=== PATIENT | male | born 1970 | race Caucasian/White ===

== ENCOUNTER 2019-02-13 22:51 | Inpatient (IN) | payer OTHER ==
--- NOTE | 2019-02-13 23:09 | C.PDOC ---
History Of Present Illness Patient presents with 3 days of abdominal pain, nausea and vomiting, worsening over the last 24 hours. Not tolerating po. Had about 7-10 episodes of emesis. Feels very weak. No cp/palpitations. HAs been complaining of being very thirsty Time Seen by Provider: 02/13/19 23:09 Chief Complaint (Nursing): GI Problem History Per: Patient, Family History/Exam Limitations: no limitations Onset/Duration Of Symptoms: Days (3) Current Symptoms Are (Timing): Still Present Severity: Severe Pain Scale Rating Of: 7 Reports Recently: Treated By A Physician Recent travel outside of the [place] States: No Additional History Per: Family Past Medical History Reviewed: Historical Data, Nursing Documentation, Vital Signs Vital Signs: Last Vital Signs Temp 97.5 F L 02/13/19 22:56 Pulse 90 02/13/19 22:56 Resp 16 02/13/19 22:56 BP 143/83 02/13/19 22:56 Pulse Ox 98 02/13/19 22:56 Family History: States: No Known Family Hx - Social History Hx Alcohol Use: Yes Hx Substance Use: No - Immunization History Hx Tetanus Toxoid Vaccination: No Hx Influenza Vaccination: No Hx Pneumococcal Vaccination: No Review Of Systems Constitutional: Negative for: Fever, Chills ENT: Negative for: Throat Pain Cardiovascular: Negative for: Chest Pain Respiratory: Negative for: Shortness of Breath Gastrointestinal: Positive for: Nausea, Vomiting, Abdominal Pain Genitourinary: Negative for: Dysuria Musculoskeletal: Positive for: Back Pain Skin: Negative for: Rash Neurological: Negative for: Weakness Psych: Negative for: Anxiety Physical Exam - Physical Exam Appears: Non-toxic Skin: Warm, Dry Oral Mucosa: Dry Neck: Supple Chest: Symmetrical Cardiovascular: Rhythm Regular Respiratory: No Rales, No Rhonchi, No Wheezing Gastrointestinal/Abdominal: Soft, Tenderness (mild), No Distention, No Guarding, No Rebound Back: No CVA Tenderness Extremity: Normal ROM Extremity: Bilateral: Atraumatic Neurological/Psych: Oriented x3 Gait: With Assistance ED Course And Treatment - Laboratory Results Result Diagrams: 02/13/19 23:59 02/13/19 23:59 ECG: Interpreted By Me, Viewed By Me ECG Rhythm: Sinus Rhythm (91), Nonspecific Changes O2 Sat by Pulse Oximetry: 98 Pulse Ox Interpretation: Normal - Radiology CXR: Interpreted by Me, Viewed By Me CXR Interpretation: No: Infiltrates, Fracture, Pnemothorax Progress Note: spoke with dr lee-icu- will come and see the pt in the ed Critical Care Time - Critical Care Note Total Time (in mins): 30 Documented critical care: time excludes all time spent performing seperately billable procedures. Disposition Discussed With : Nataly Wynne Comment: accepted the pt on his service and took over the care at 1:21 AM Doctor Will See Patient In The: ED Counseled Patient/Family Regarding: Studies Performed, Diagnosis - Disposition Disposition: HOSPITALIZED Disposition Time: 23:09 Condition: GUARDED Forms: [employer] ([employer]) - POA Present On Arrival: Poor Glycemic Control - Clinical Impression Clinical Impression: DKA (diabetic ketoacidoses), Diabetes mellitus, new onset Decision To Admit - Pt Status Changed To: Hospital Disposition Of: Inpatient - Admit Certification Admit to Inpatient:: After my assessment, the patient will require ho spitalization for at least two midnights. This is because of the severity of symptoms shown, intensity of services needed, and/or the medical risk in this patient being treated as an outpatient. - InPatient: Physician Admission Certification: I certify that this patient requires 2 or more midnights of care for the following reason:: After my assessment, the patient will require hospitalization for at least two midnights. This is because of the severity of symptoms shown, intensity of services needed, and/or the medical risk in this patient being treated as an outpatient. - . Bed Request Type: ICU Admitting Physician: Kylah Acosta Patient Diagnosis: DKA (diabetic ketoacidoses), Diabetes mellitus, new onset
[2019-02-13] MEDS ORDERED: Sodium Chloride 0.9% 1,000 ML IV ONE (23:53)
[2019-02-14 00:05] LABS: BASO # 0.1 K/uL (0.0-0.2); BASO % 0.4 % (0.0-2.0); EOS % 0.1 % (0.0-4.0); HEMOGLOBIN 17.3 g/dL (12.0-18.0); LYMPH # 1.7 K/uL (1.0-4.3); MEAN CELL VOLUME 94.1 fL (80.0-94.0); MEAN CORPUSCULAR HEMOGLOBIN 30.4 pg (27.0-31.0); MEAN CORPUSCULAR HGB CONC 32.2 g/dL (33.0-37.0); MEAN PLATELET VOLUME 10.6 fL (7.2-11.7); MONO # 0.6 K/uL (0.0-0.8); MONO % 3.9 % (0.0-10.0); NEUT % 83.6 % (50.0-75.0); NRBC % 0.1 % (0.0-2.0); RBC 5.71 Mil/uL (4.40-5.90); RED CELL DISTRIBUTION WIDTH 19.4 % (11.5-14.5); WHITE BLOOD COUNT 14.4 K/uL (4.8-10.8)
[2019-02-14 00:28] LABS: ALB/GLOB RATIO 1.7 (1.0-2.1); ALBUMIN 5.6 g/dL (3.5-5.0); ALT/SGPT 13 U/L (21-72); AST/SGOT 16 U/L (17-59); BLOOD UREA NITROGEN 12 mg/dL (9-20); CALCIUM 9.4 mg/dl (8.6-10.4); GFR NON-AFRICAN AMERICAN > 60; LIPASE 256 U/L (23-300)
[2019-02-14] MEDS ORDERED: Sodium Chloride 0.9% 2,000 ML IV ONE (00:30)
[2019-02-14 00:51] LABS: VENOUS BLOOD GAS BASE EXCESS -27.9 mmol/L (0.0-2.0); VENOUS BLOOD GAS PCO2 15 mmHg (40-60); VENOUS BLOOD GAS PO2 47 mm/Hg (30-55); VENOUS BLOOD PH 6.93 (7.32-7.43)
[2019-02-14 00:52] LABS: INR 0.9; PROTHROMBIN TIME 10.3 SECONDS (9.7-12.2)
[2019-02-14 01:02] LABS: GRANULAR CAST 7 /lpf (0-1); SQUAMOUS EPITHIAL < 1 /hpf (0-5); URINE BILIRUBIN NEGATIVE (NEGATIVE); URINE BLOOD 1+ (NEGATIVE); URINE CLARITY Clear (Clear); URINE COLOR Yellow (YELLOW); URINE GLUCOSE (UA) 3+ mg/dL (Normal); URINE LEUKOCYTE ESTERASE NEG Leu/uL (Negative); URINE PROTEIN 2+ mg/dL (NEGATIVE); URINE UROBILINOGEN NORMAL mg/dL (0.2-1.0)
--- NOTE | 2019-02-14 01:11 | CP.PCM.CON ---
History of Present Illness - History of Present Illness History of Present Illness: Attending: Michelle Acosta MD PMD: None Reason for Consult: Critical care management Chief Complaint: Vomiting/ Generalized weakness The patient was isra nd examined in the ED with the family present HPI: The Hx was obtained from the patient, and after review of the laboratory, radiological and medical records. This is a 49 years old male with No significant past medical hx who comes with 3 days of Polydypsia, polyuria, g eneralized weakness, being unable to walk, with nausea and non bloody profuse vomiting for 2 days. The abdominal pain is associated with the vomiting. He refers headache, Chills, SOB on minimal exertion, bilateral leg cramps and carpopedal spasm of the toes. No diarrhea, dysuria nor fever. In the ED his blood glucose was 452mg/dl with pH of 6.93 and Anion gap of 35 PMH: Denies PSH: Denies SH: No illegal drug use; Heavy smoker of cigrettes; Uses Alcohol socially; Works as a [employer] truck driver; Lives with the Family FH: States: No Diabetes in the family Allergies: NKDA Medications: Denies use of medication Review of Systems - Constitutional Constitutional: Anorexia, Chills, Headache, Malaise. absent: Fever - EENT Eyes: Requires Corrective Lenses. absent: Blurred Vision, Diplopia, Sees Flashes Ears: absent: Decreased Hearing, Ear Discharge, Tinnitus Nose/Mouth/Throat: absent: Epistaxis, Nasal Congestion, Nasal Discharge, Sinus Pain, Sinus Pressure, Sore Throat - Cardiovascular Cardiovascular: Lightheadedness. absent: Chest Pain, Dyspnea, Edema, Palpitations, Pedal Edema - Respiratory Respiratory: Dyspnea. absent: Cough, Wheezing, Stridor - Gastrointestinal Gastrointestinal: Abdominal Pain, Nausea, Vomiting. absent: Constipation, Diarrhea - Genitourinary Genitourinary: absent: Dysuria, Flank Pain, Hematuria - Musculoskeletal Musculoskeletal: Muscle Cramps. absent: Arthralgias, Back Pain, Numbness - Integumentary Integumentary: absent: Pruritus, Rash, Skin Ulcer, Sores, Striae, Swelling - Neurological Neurological: Headaches, Weakness. absent: Confusion, Focal Weakness - Psychiatric Psychiatric: absent: Anxiety, Depression, Panic Attacks - Endocrine Endocrine: Polydipsia, Polyuria. absent: Palpitations, Polyphagia - Hematologic/Lymphatic Hematologic: absent: Easy Bleeding, Easy Bruising Past Patient History - Past Medical History & Family History Past Medical History?: No - Past Social History Smoking Status: Heavy Smoker > 10 Cigarettes Daily Chewing Tobacco Use: No Cigar Use: No Alcohol: Social Drugs: Denies, Inhalants Home Situation {Lives}: With Family - CARDIAC Hx Cardiac Disorders: No - PULMONARY Hx Respiratory Disorders: No - NEUROLOGICAL Hx Neurological Disorder: No - HEENT Hx HEENT Problems: No - RENAL Hx Chronic Kidney Disease: No - ENDOCRINE/METABOLIC Hx Endocrine Disorders: No - HEMATOLOGICAL/ONCOLOGICAL Hx Blood Disorders: No - INTEGUMENTARY Hx Dermatological Problems: No - MUSCULOSKELETAL/RHEUMATOLOGICAL Hx Musculoskeletal Disorders: No - GASTROINTESTINAL Hx Gastrointestinal Disorders: No - GENITOURINARY/GYNECOLOGICAL Hx Genitourinary Disorders: No - PSYCHIATRIC Hx Psychophysiologic Disorder: No Hx Substance Use: No - SURGICAL HISTORY Hx Surgeries: No - ANESTHESIA Hx Anesthesia: No Meds Allergies/Adverse Reactions: Allergies Allergy/AdvReac Type Severity Reaction Status Date / Time No Known Allergies Allergy Verified 02/13/19 23:02 - Medications Medications: Current Medications Sodium Chloride (Sodium Chloride 0.9%) 2,000 mls @ 1,000 mls/hr IV .Q2H ONE Stop: 02/14/19 02:29 Physical Exam - Constitutional Appears: In Acute Distress - Head Exam Head Exam: ATRAUMATIC, NORMAL INSPECTION, NORMOCEPHALIC - Eye Exam Eye Exam: EOMI, Normal appearance Pupil Exam: NORMAL ACCOMODATION, PERRL - ENT Exam ENT Exam: Mucous Membranes Moist, Normal Exam - Neck Exam Neck exam: Positive for: Full Rom. Negative for: Lymphadenopathy, Tenderness, Thyromegaly - Respiratory Exam Respiratory Exam: Clear to Auscultation Bilateral. absent: Rales, Rhonchi, Wheezes - Cardiovascular Exam Cardiovascular Exam: Gallop, REGULAR RHYTHM, RRR, Rubs, +S1, +S2 - GI/Abdominal Exam GI & Abdominal Exam: Normal Bowel Sounds, Soft. absent: Mass, Organomegaly, Tenderness - Rectal Exam Rectal Exam: absent: Deferred - Extremities Exam Extremities exam: Positive for: full ROM, normal inspection. Negative for: calf tenderness, joint swelling, pedal edema - Back Exam Back exam: NORMAL INSPECTION. absent: CVA tenderness (L), CVA tenderness (R) - Neurological Exam Neurological exam: Alert, CN II-XII Intact, Oriented x3, Reflexes Normal - Psychiatric Exam Psychiatric exam: Normal Affect, Normal Mood - Skin Skin Exam: Dry, Intact, Warm Results - Vital Signs Recent Vital Signs: Last Vital Signs Temp 97.5 F L 02/13/19 22:56 Pulse 90 02/13/19 22:56 Resp 16 02/13/19 22:56 BP 143/83 02/13/19 22:56 Pulse Ox 98 02/14/19 00:22 - Labs Result Diagrams: 02/13/19 23:59 02/14/19 02:23 Labs: Laboratory Results - last 24 hr 02/13/19 02/13/19 02/14/19 23:59 23:59 00:40 WBC 14.4 H RBC 5.71 Hgb 17.3 Hct 53.8 H MCV 94.1 H MCH 30.4 MCHC 32.2 L RDW 19.4 H Plt Count 295 MPV 10.6 Neut % (Auto) 83.6 H Lymph % (Auto) 12.0 L Boundary % (Auto) 3.9 Eos % (Auto) 0.1 Baso % (Auto) 0.4 Neut # (Auto) 12.0 H Lymph # (Auto) 1.7 Boundary # (Auto) 0.6 Eos # (Auto) 0.0 Baso # (Auto) 0.1 PT 10.3 INR 0.9 APTT 37.0 H pO2 VBG pH VBG pCO2 VBG HCO3 VBG Total CO2 VBG O2 Sat (Calc) VBG Base Excess VBG Potassium Glucose Lactate Crit Value Called To Crit Value Called By Crit Value Read Back Blood Gas Notified Time Sodium 133 Potassium 5.1 Chloride 98 Carbon Dioxide 5 L* Anion Gap 35 H BUN 12 Creatinine 1.0 Est GFR ( Amer) > 60 Est GFR (Non-Af Amer) > 60 Random Glucose 452 H* Calcium 9.4 Total Bilirubin 0.7 AST 16 L ALT 13 L Alkaline Phosphatase 134 H Total Protein 8.8 H Albumin 5.6 H Globulin 3.3 Albumin/Globulin Ratio 1.7 Lipase 256 Venous Blood Potassium 02/14/19 00:45 WBC RBC Hgb Hct MCV MCH MCHC RDW Plt Count MPV Neut % (Auto) Lymph % (Auto) Boundary % (Auto) Eos % (Auto) Baso % (Auto) Neut # (Auto) Lymph # (Auto) Boundary # (Auto) Eos # (Auto) Baso # (Auto) PT INR APTT pO2 47 VBG pH 6.93 L* VBG pCO2 15 L* VBG HCO3 1.9 VBG Total CO2 3.6 L VBG O2 Sat (Calc) 80.3 H VBG Base Excess -27.9 L VBG Potassium 1.9 L* Glucose 222 H Lactate 1.4 Crit Value Called To Desiree rn Crit Value Called By Luigi digital forensics investigator Crit Value Read Back Y Blood Gas Notified Time 51 Sodium 143.0 Potassium Chloride 117.0 H Carbon Dioxide Anion Gap BUN Creatinine Est GFR ( Amer) Est GFR (Non-Af Amer) Random Glucose Calcium Total Bilirubin AST ALT Alkaline Phosphatase Total Protein Albumin Globulin Albumin/Globulin Ratio Lipase Venous Blood Potassium 1.9 L* - Imaging and Cardiology Chest x-ray Status: Image reviewed by me Additional comment: Clear no infiltrate. Assessment & Plan - Assessment and Plan (Free Text) Plan: 49 years old male with No significant past medical hx who comes with 3 days of Polydypsia, polyuria, generalized weakness, being unable to walk, with nausea and non bloody profuse vomiting for 2 days. In the ED his blood glucose was 452mg/dl with pH of 6.93 and Anion gap of 35 #. DKA - Admit to ICU - IV Fluids 3 liters given in ED. Continue with Normal Saline 500mls/hr for 4hrs then reassess - Insulin IV drip according to DKA protocol - Accucheck Q1H - Electrolyes and renal labs Q 4H #. New unset Diabetes Mellitus - Consult Endocrine Dr Cam - Diabetic Counselling - HbA1c #. Leukocytosis most likely reactive - Blood Culture - Follow WBC #. Alcohol Abuse and Suspect Pending Alcohol withdrawal - Ativan PRN for Withdrawal symptoms - Thimine IM change to PO with Folic acid as soon as pte starts oral diet -CIWA protocol #. Stress Ulcer Prophylaxis with Pepcid #. DVT Prophylaxis with SCD and Lovenox #. Code Status: Full - Date & Time Date: 02/14/19 Time: 01:11
[2019-02-14] MEDS ORDERED: (Novolin R) Insulin Human Regular 100 units/ml vial IVP ONE (01:45)
[2019-02-14] MEDS ORDERED: Insulin Human Regular 100 UNIT in Sodium Chloride 0.9% 99 ML IV SCH ×2 (02:00→11:30)
[2019-02-14 03:05] LABS: BLOOD UREA NITROGEN 11 mg/dL (9-20); CALCIUM 7.9 mg/dl (8.6-10.4); GFR NON-AFRICAN AMERICAN > 60
[2019-02-14] MEDS ORDERED: Sodium Bicarbonate (8.4%) 50 Meq Syringe IVP ONE (03:15)
[2019-02-14] MEDS ORDERED: Sodium Bicarbonate (8.4%) 50 mEq Vial IVP ONE (03:30)
[2019-02-14] MEDS ORDERED: Potassium Chl 20 mEq in NS 1,000 ML IV ONE (03:30)
[2019-02-14] MEDS: Potassium Chl 20 mEq in NS 1,000 ML IV SCH ×2 (03:38→06:15)
[2019-02-14 05:42] LABS: VENOUS BLOOD GAS BASE EXCESS -20.1 mmol/L (0.0-2.0); VENOUS BLOOD GAS PCO2 26 mmHg (40-60); VENOUS BLOOD GAS PO2 18 mm/Hg (30-55)
[2019-02-14 06:01] LABS: BARBITURATES, UR NEGATIVE (NEGATIVE); BENZODIAZEPINES, UR NEGATIVE (NEGATIVE); OPIATES, UR NEGATIVE (NEGATIVE); PHENCYCLIDINE, UR NEGATIVE (NEGATIVE)
[2019-02-14 06:11] LABS: BASO # 0.1 K/uL (0.0-0.2); BASO % 0.5 % (0.0-2.0); LYMPH # 1.9 K/uL (1.0-4.3); LYMPH % 12.7 % (20.0-40.0); MEAN CELL VOLUME 93.1 fL (80.0-94.0); MEAN CORPUSCULAR HEMOGLOBIN 30.7 pg (27.0-31.0); MEAN CORPUSCULAR HGB CONC 32.9 g/dL (33.0-37.0); MEAN PLATELET VOLUME 9.9 fL (7.2-11.7); MONO # 0.7 K/uL (0.0-0.8); MONO % 4.4 % (0.0-10.0); NEUT # 12.3 K/uL (1.8-7.0); NEUT % 82.4 % (50.0-75.0); RBC 4.59 Mil/uL (4.40-5.90); RED CELL DISTRIBUTION WIDTH 18.9 % (11.5-14.5)
[2019-02-14] MEDS ORDERED: Dextrose 5%/0.45% NS 1,000 ML IV ONE (06:15)
[2019-02-14 06:19] LABS: HEMOGLOBIN 14.1 g/dL (12.0-18.0)
[2019-02-14 06:30] LABS: BLOOD UREA NITROGEN 10 mg/dL (9-20); CALCIUM 7.7 mg/dl (8.6-10.4); GFR NON-AFRICAN AMERICAN > 60
[2019-02-14] MEDS ORDERED: Potassium Phosphate 15 MMOLE in Sodium Chloride 0.9% 250 ML IVPB ONE (07:00)
[2019-02-14] MEDS: Enoxaparin 40 mg Syringe SC SCH (09:35)
[2019-02-14] MEDS: Thiamine 100 mg/ml Inj IM SCH (09:35)
--- NOTE | 2019-02-14 10:12 | RAD ---
Date of service: 02/14/2019 PROCEDURE: CHEST RADIOGRAPH, 1 VIEW HISTORY: abd pain COMPARISON: None available. FINDINGS: LUNGS: The lungs are well inflated and clear. There is biapical pleural thickening. PLEURA: No pneumothorax or pleural effusion. CARDIOVASCULAR: The heart is normal in size. No aortic atherosclerotic calcifications present. OSSEOUS STRUCTURES: Within normal limits for the patient's age. VISUALIZED UPPER ABDOMEN: Normal. OTHER FINDINGS: None. IMPRESSION: No active pulmonary disease.
[2019-02-14 10:34] LABS: AMYLASE 71 U/L (30-110); BLOOD UREA NITROGEN 8 mg/dL (9-20); CALCIUM 7.5 mg/dl (8.6-10.4); GFR NON-AFRICAN AMERICAN > 60; LIPASE 232 U/L (23-300)
[2019-02-14 14:33] LABS: BLOOD UREA NITROGEN 7 mg/dL (9-20); CALCIUM 7.8 mg/dl (8.6-10.4); GFR NON-AFRICAN AMERICAN > 60
[2019-02-14] MEDS: Sodium Chloride 0.45% 1,000 ML IV SCH (16:00)
[2019-02-14] MEDS: (Novolog) Insulin Aspart, Recombinant 100 u/ml 10 ml vial SC SCH ×3 (17:15→22:00)
[2019-02-14] MEDS ORDERED: (Lantus) Insulin Glargine, Recombinant SC SCH (22:00)
--- NOTE | 2019-02-14 23:34 | CP.PCM.HP ---
Past Patient History - Past Medical History & Family History Past Medical History?: No - Past Social History Smoking Status: Heavy Smoker > 10 Cigarettes Daily Chewing Tobacco Use: No Cigar Use: No Alcohol: Social Drugs: Denies, Inhalants Home Situation {Lives}: With Family - CARDIAC Hx Cardiac Disorders: No - PULMONARY Hx Respiratory Disorders: No - NEUROLOGICAL Hx Neurological Disorder: No - HEENT Hx HEENT Problems: No - RENAL Hx Chronic Kidney Disease: No - ENDOCRINE/METABOLIC Hx Endocrine Disorders: No - HEMATOLOGICAL/ONCOLOGICAL Hx Blood Disorders: No - INTEGUMENTARY Hx Dermatological Problems: No - MUSCULOSKELETAL/RHEUMATOLOGICAL Hx Musculoskeletal Disorders: No - GASTROINTESTINAL Hx Gastrointestinal Disorders: No - GENITOURINARY/GYNECOLOGICAL Hx Genitourinary Disorders: No - PSYCHIATRIC Hx Psychophysiologic Disorder: No Hx Substance Use: No - SURGICAL HISTORY Hx Surgeries: No - ANESTHESIA Hx Anesthesia: No Meds Allergies/Adverse Reactions: Allergies Allergy/AdvReac Type Severity Reaction Status Date / Time No Known Allergies Allergy Verified 02/13/19 23:02 Physical Exam - Constitutional Appears: Well - Head Exam Head Exam: ATRAUMATIC, NORMAL INSPECTION, NORMOCEPHALIC - Eye Exam Eye Exam: EOMI, Normal appearance, PERRL Pupil Exam: NORMAL ACCOMODATION, PERRL - ENT Exam ENT Exam: Mucous Membranes Moist, Normal Exam - Neck Exam Neck exam: Positive for: Normal Inspection - Respiratory Exam Respiratory Exam: Decreased Breath Sounds - Cardiovascular Exam Cardiovascular Exam: REGULAR RHYTHM, +S1, +S2 - GI/Abdominal Exam GI & Abdominal Exam: Diminished Bowel Sounds, Soft - Rectal Exam Rectal Exam: Deferred - Neurological Exam Neurological exam: Oriented x3 Results - Vital Signs Recent Vital Signs: Last Vital Signs Temp 98.4 F 02/14/19 20:00 Pulse 71 02/14/19 22:30 Resp 15 02/14/19 22:30 BP 112/66 02/14/19 22:55 Pulse Ox 100 02/14/19 22:30 - Labs Result Diagrams: 02/15/19 06:18 02/15/19 06:18 Labs: Laboratory Results - last 24 hr 02/13/19 02/13/19 02/14/19 23:59 23:59 00:40 WBC 14.4 H RBC 5.71 Hgb 17.3 Hct 53.8 H MCV 94.1 H MCH 30.4 MCHC 32.2 L RDW 19.4 H Plt Count 295 MPV 10.6 Neut % (Auto) 83.6 H Lymph % (Auto) 12.0 L Hall % (Auto) 3.9 Eos % (Auto) 0.1 Baso % (Auto) 0.4 Neut # (Auto) 12.0 H Lymph # (Auto) 1.7 Hall # (Auto) 0.6 Eos # (Auto) 0.0 Baso # (Auto) 0.1 PT 10.3 INR 0.9 APTT 37.0 H pO2 VBG pH VBG pCO2 VBG HCO3 VBG Total CO2 VBG O2 Sat (Calc) VBG Base Excess VBG Potassium Glucose Lactate Crit Value Called To Crit Value Called By Crit Value Read Back Blood Gas Notified Time Sodium 133 Potassium 5.1 Chloride 98 Carbon Dioxide 5 L* Anion Gap 35 H BUN 12 Creatinine 1.0 Est GFR ( Amer) > 60 Est GFR (Non-Af Amer) > 60 POC Glucose (mg/dL) Random Glucose 452 H* Hemoglobin A1c Calcium 9.4 Phosphorus Magnesium Total Bilirubin 0.7 AST 16 L ALT 13 L Alkaline Phosphatase 134 H Total Protein 8.8 H Albumin 5.6 H Globulin 3.3 Albumin/Globulin Ratio 1.7 Amylase Lipase 256 Venous Blood Potassium Urine Color Urine Clarity Urine pH Ur Specific Randolph Urine Protein Urine Glucose (UA) Urine Ketones Urine Blood Urine Nitrate Urine Bilirubin Urine Urobilinogen Ur Leukocyte Esterase Urine WBC (Auto) Urine RBC (Auto) Ur Squamous Epith Cells Hyaline Casts Granular Casts (Auto) Urine Opiates Screen Urine Methadone Screen Ur Barbiturates Screen Ur Phencyclidine Scrn Ur Amphetamines Screen U Benzodiazepines Scrn U Oth Cocaine Metabols U Cannabinoids Screen B-Hydroxybutyrate 02/14/19 02/14/19 02/14/19 00:40 00:45 02:22 WBC RBC Hgb Hct MCV MCH MCHC RDW Plt Count MPV Neut % (Auto) Lymph % (Auto) Hall % (Auto) Eos % (Auto) Baso % (Auto) Neut # (Auto) Lymph # (Auto) Hall # (Auto) Eos # (Auto) Baso # (Auto) PT INR APTT pO2 47 VBG pH 6.93 L* VBG pCO2 15 L* VBG HCO3 1.9 VBG Total CO2 3.6 L VBG O2 Sat (Calc) 80.3 H VBG Base Excess -27.9 L VBG Potassium 1.9 L* Glucose 222 H Lactate 1.4 Crit Value Called To Desiree phoenix Crit Value Called By Luigi behavioral scientist Crit Value Read Back Y Blood Gas Notified Time 51 Sodium 143.0 Potassium Chloride 117.0 H Carbon Dioxide Anion Gap BUN Creatinine Est GFR ( Amer) Est GFR (Non-Af Amer) POC Glucose (mg/dL) 339 H Random Glucose Hemoglobin A1c Calcium Phosphorus Magnesium Total Bilirubin AST ALT Alkaline Phosphatase Total Protein Albumin Globulin Albumin/Globulin Ratio Amylase Lipase Venous Blood Potassium 1.9 L* Urine Color Yellow Urine Clarity Clear Urine pH 5.0 Ur Specific Randolph 1.023 Urine Protein 2+ H Urine Glucose (UA) 3+ H Urine Ketones 2+ H Urine Blood 1+ H Urine Nitrate Negative Urine Bilirubin Negative Urine Urobilinogen Normal Ur Leukocyte Esterase Neg Urine WBC (Auto) 1 Urine RBC (Auto) 1 Ur Squamous Epith Cells < 1 Hyaline Casts 11-20 H Granular Casts (Auto) 7 Urine Opiates Screen Urine Methadone Screen Ur Barbiturates Screen Ur Phencyclidine Scrn Ur Amphetamines Screen U Benzodiazepines Scrn U Oth Cocaine Metabols U Cannabinoids Screen B-Hydroxybutyrate 02/14/19 02/14/19 02/14/19 02:23 02:23 02:23 WBC RBC Hgb Hct MCV MCH MCHC RDW Plt Count MPV Neut % (Auto) Lymph % (Auto) Hall % (Auto) Eos % (Auto) Baso % (Auto) Neut # (Auto) Lymph # (Auto) Hall # (Auto) Eos # (Auto) Baso # (Auto) PT INR APTT pO2 VBG pH VBG pCO2 VBG HCO3 VBG Total CO2 VBG O2 Sat (Calc) VBG Base Excess VBG Potassium Glucose Lactate Crit Value Called To Crit Value Called By Crit Value Read Back Blood Gas Notified Time Sodium 134 Potassium 4.7 Chloride 106 Carbon Dioxide < 5 L* Anion Gap 28 H BUN 11 Creatinine 0.8 Est GFR ( Amer) > 60 Est GFR (Non-Af Amer) > 60 POC Glucose (mg/dL) Random Glucose 364 H Hemoglobin A1c 11.5 H Calcium 7.9 L Phosphorus Magnesium Total Bilirubin AST ALT Alkaline Phosphatase Total Protein Albumin Globulin Albumin/Globulin Ratio Amylase Lipase Venous Blood Potassium Urine Color Urine Clarity Urine pH Ur Specific Randolph Urine Protein Urine Glucose (UA) Urine Ketones Urine Blood Urine Nitrate Urine Bilirubin Urine Urobilinogen Ur Leukocyte Esterase Urine WBC (Auto) Urine RBC (Auto) Ur Squamous Epith Cells Hyaline Casts Granular Casts (Auto) Urine Opiates Screen Urine Methadone Screen Ur Barbiturates Screen Ur Phencyclidine Scrn Ur Amphetamines Screen U Benzodiazepines Scrn U Oth Cocaine Metabols U Cannabinoids Screen B-Hydroxybutyrate 10.1 H 02/14/19 02/14/19 02/14/19 02:57 03:46 04:38 WBC RBC Hgb Hct MCV MCH MCHC RDW Plt Count MPV Neut % (Auto) Lymph % (Auto) Hall % (Auto) Eos % (Auto) Baso % (Auto) Neut # (Auto) Lymph # (Auto) Hall # (Auto) Eos # (Auto) Baso # (Auto) PT INR APTT pO2 VBG pH VBG pCO2 VBG HCO3 VBG Total CO2 VBG O2 Sat (Calc) VBG Base Excess VBG Potassium Glucose Lactate Crit Value Called To Crit Value Called By Crit Value Read Back Blood Gas Notified Time Sodium Potassium Chloride Carbon Dioxide Anion Gap BUN Creatinine Est GFR ( Amer) Est GFR (Non-Af Amer) POC Glucose (mg/dL) 330 H 314 H Random Glucose Hemoglobin A1c Calcium Phosphorus Magnesium Total Bilirubin AST ALT Alkaline Phosphatase Total Protein Albumin Globulin Albumin/Globulin Ratio Amylase Lipase Venous Blood Potassium Urine Color Urine Clarity Urine pH Ur Specific Randolph Urine Protein Urine Glucose (UA) Urine Ketones Urine Blood Urine Nitrate Urine Bilirubin Urine Urobilinogen Ur Leukocyte Esterase Urine WBC (Auto) Urine RBC (Auto) Ur Squamous Epith Cells Hyaline Casts Granular Casts (Auto) Urine Opiates Screen Negative Urine Methadone Screen Negative Ur Barbiturates Screen Negative Ur Phencyclidine Scrn Negative Ur Amphetamines Screen Negative U Benzodiazepines Scrn Negative U Oth Cocaine Metabols Negative U Cannabinoids Screen Negative B-Hydroxybutyrate 02/14/19 02/14/19 02/14/19 05:02 05:39 05:49 WBC RBC Hgb Hct MCV MCH MCHC RDW Plt Count MPV Neut % (Auto) Lymph % (Auto) Hall % (Auto) Eos % (Auto) Baso % (Auto) Neut # (Auto) Lymph # (Auto) Hall # (Auto) Eos # (Auto) Baso # (Auto) PT INR APTT pO2 18 L VBG pH 7.10 L* VBG pCO2 26 L VBG HCO3 7.0 VBG Total CO2 8.9 L VBG O2 Sat (Calc) 43.4 VBG Base Excess -20.1 L VBG Potassium 3.6 Glucose 221 H Lactate 1.8 Crit Value Called To Radha phoenix Crit Value Called By Luigi behavioral scientist Crit Value Read Back Y Blood Gas Notified Time 542 Sodium 135.0 Potassium Chloride 103.0 Carbon Dioxide Anion Gap BUN Creatinine Est GFR ( Amer) Est GFR (Non-Af Amer) POC Glucose (mg/dL) 254 H 228 H Random Glucose Hemoglobin A1c Calcium Phosphorus Magnesium Total Bilirubin AST ALT Alkaline Phosphatase Total Protein Albumin Globulin Albumin/Globulin Ratio Amylase Lipase Venous Blood Potassium 3.6 Urine Color Urine Clarity Urine pH Ur Specific Randolph Urine Protein Urine Glucose (UA) Urine Ketones Urine Blood Urine Nitrate Urine Bilirubin Urine Urobilinogen Ur Leukocyte Esterase Urine WBC (Auto) Urine RBC (Auto) Ur Squamous Epith Cells Hyaline Casts Granular Casts (Auto) Urine Opiates Screen Urine Methadone Screen Ur Barbiturates Screen Ur Phencyclidine Scrn Ur Amphetamines Screen U Benzodiazepines Scrn U Oth Cocaine Metabols U Cannabinoids Screen B-Hydroxybutyrate 02/14/19 02/14/19 02/14/19 06:09 06:09 06:51 WBC 15.0 H RBC 4.59 Hgb 14.1 D Hct 42.7 MCV 93.1 MCH 30.7 MCHC 32.9 L RDW 18.9 H Plt Count 193 D MPV 9.9 Neut % (Auto) 82.4 H Lymph % (Auto) 12.7 L Hall % (Auto) 4.4 Eos % (Auto) 0.0 Baso % (Auto) 0.5 Neut # (Auto) 12.3 H Lymph # (Auto) 1.9 Hall # (Auto) 0.7 Eos # (Auto) 0.0 Baso # (Auto) 0.1 PT INR APTT pO2 VBG pH VBG pCO2 VBG HCO3 VBG Total CO2 VBG O2 Sat (Calc) VBG Base Excess VBG Potassium Glucose Lactate Crit Value Called To Crit Value Called By Crit Value Read Back Blood Gas Notified Time Sodium 135 Potassium 3.7 Chloride 109 H Carbon Dioxide 7 L* D Anion Gap 23 H BUN 10 Creatinine 0.6 L Est GFR ( Amer) > 60 Est GFR (Non-Af Amer) > 60 POC Glucose (mg/dL) 229 H Random Glucose 215 H D Hemoglobin A1c Calcium 7.7 L Phosphorus 1.8 L Magnesium 1.7 Total Bilirubin AST ALT Alkaline Phosphatase Total Protein Albumin Globulin Albumin/Globulin Ratio Amylase Lipase Venous Blood Potassium Urine Color Urine Clarity Urine pH Ur Specific Randolph Urine Protein Urine Glucose (UA) Urine Ketones Urine Blood Urine Nitrate Urine Bilirubin Urine Urobilinogen Ur Leukocyte Esterase Urine WBC (Auto) Urine RBC (Auto) Ur Squamous Epith Cells Hyaline Casts Granular Casts (Auto) Urine Opiates Screen Urine Methadone Screen Ur Barbiturates Screen Ur Phencyclidine Scrn Ur Amphetamines Screen U Benzodiazepines Scrn U Oth Cocaine Metabols U Cannabinoids Screen B-Hydroxybutyrate 02/14/19 02/14/19 02/14/19 07:54 09:02 09:08 WBC RBC Hgb Hct MCV MCH MCHC RDW Plt Count MPV Neut % (Auto) Lymph % (Auto) Hall % (Auto) Eos % (Auto) Baso % (Auto) Neut # (Auto) Lymph # (Auto) Hall # (Auto) Eos # (Auto) Baso # (Auto) PT INR APTT pO2 VBG pH VBG pCO2 VBG HCO3 VBG Total CO2 VBG O2 Sat (Calc) VBG Base Excess VBG Potassium Glucose Lactate Crit Value Called To Crit Value Called By Crit Value Read Back Blood Gas Notified Time Sodium 133 Potassium 3.9 Chloride 108 H Carbon Dioxide 13 L Anion Gap 16 BUN 8 L Creatinine 0.5 L Est GFR ( Amer) > 60 Est GFR (Non-Af Amer) > 60 POC Glucose (mg/dL) 222 H 237 H Random Glucose 218 H Hemoglobin A1c Calcium 7.5 L Phosphorus Magnesium Total Bilirubin AST ALT Alkaline Phosphatase Total Protein Albumin Globulin Albumin/Globulin Ratio Amylase 71 Lipase 232 Venous Blood Potassium Urine Color Urine Clarity Urine pH Ur Specific Randolph Urine Protein Urine Glucose (UA) Urine Ketones Urine Blood Urine Nitrate Urine Bilirubin Urine Urobilinogen Ur Leukocyte Esterase Urine WBC (Auto) Urine RBC (Auto) Ur Squamous Epith Cells Hyaline Casts Granular Casts (Auto) Urine Opiates Screen Urine Methadone Screen Ur Barbiturates Screen Ur Phencyclidine Scrn Ur Amphetamines Screen U Benzodiazepines Scrn U Oth Cocaine Metabols U Cannabinoids Screen B-Hydroxybutyrate 02/14/19 02/14/19 02/14/19 10:10 10:52 14:16 WBC RBC Hgb Hct MCV MCH MCHC RDW Plt Count MPV Neut % (Auto) Lymph % (Auto) Hall % (Auto) Eos % (Auto) Baso % (Auto) Neut # (Auto) Lymph # (Auto) Hall # (Auto) Eos # (Auto) Baso # (Auto) PT INR APTT pO2 VBG pH VBG pCO2 VBG HCO3 VBG Total CO2 VBG O2 Sat (Calc) VBG Base Excess VBG Potassium Glucose Lactate Crit Value Called To Crit Value Called By Crit Value Read Back Blood Gas Notified Time Sodium 134 Potassium 3.3 L Chloride 109 H Carbon Dioxide 17 L Anion Gap 12 BUN 7 L Creatinine 0.4 L Est GFR ( Amer) > 60 Est GFR (Non-Af Amer) > 60 POC Glucose (mg/dL) 243 H 266 H Random Glucose 163 H D Hemoglobin A1c Calcium 7.8 L Phosphorus Magnesium Total Bilirubin AST ALT Alkaline Phosphatase Total Protein Albumin Globulin Albumin/Globulin Ratio Amylase Lipase Venous Blood Potassium Urine Color Urine Clarity Urine pH Ur Specific Randolph Urine Protein Urine Glucose (UA) Urine Ketones Urine Blood Urine Nitrate Urine Bilirubin Urine Urobilinogen Ur Leukocyte Esterase Urine WBC (Auto) Urine RBC (Auto) Ur Squamous Epith Cells Hyaline Casts Granular Casts (Auto) Urine Opiates Screen Urine Methadone Screen Ur Barbiturates Screen Ur Phencyclidine Scrn Ur Amphetamines Screen U Benzodiazepines Scrn U Oth Cocaine Metabols U Cannabinoids Screen B-Hydroxybutyrate
--- NOTE | 2019-02-15 03:34 | PN ---
DATE: 02/14/2019 ENDOCRINOLOGY FOLLOWUP NOTE LOCATION: ICU room 6. SUBJECTIVE: This is a 49-year-old male with recent admission for generalized body weakness with supervening marked hyperglycemic accelerations and evaluated to a new onset of uncontrolled type 1 insulin-dependent diabetes and is now being followed closely for metabolic management. He was also evaluated to have diabetic ketoacidosis and was started on intensive insulin therapy with vigorous IV hydration as given. His glycemic levels are fluctuating but improved as noted today, and the latest glucose values have ranged from 163 to 339 mg/dL. LABORATORY DATA: His chemistries initially showed a BUN of 12, sodium 133, potassium 5.1, chloride 98, CO2 is 5, and glucose 452. Initial glucose was 452 mg/dL and the creatinine was 1. His A1c levels are 11.5% which is extremely elevated and indicative of marked hyperglycemic accelerations even prior to this admission as he was actually undiagnosed at that time. His latest chemistries at 3 o'clock today showed a BUN of 7, sodium 134, potassium 3.3, chloride 109, CO2 of 17, glucose of 163, and creatinine 0.4. ASSESSMENT: This is a 49-year-old male with uncontrolled and decompensated type 1 insulin-dependent diabetes of recent evaluation and onset and presenting here with diabetic ketoacidosis and dehydration with spurious hyponatremia and hyperkalemia as noted. PLAN OF MANAGEMENT: We will concur with the present medical management and metabolic management for diabetic ketoacidosis as initiated with intensive insulin therapy and vigorous IV hydration as given. We will continue the IV hydration and change the IV to half normal saline running at 125 mL per hour. We will also discontinue now the insulin drip, but switching over to a more physiologic basal and bolus insulin drug combination as ordered. We will start him with NovoLog as given as 10 units t.i.d. before meals to start at dinnertime today as ordered. We will modify the coverage scale to a low-dose algorithm using NovoLog insulin as given. We will also add basal insulin with Lantus given as 24 units subcutaneous at bedtime daily to start tonight. We will initiate diabetic education to include insulin self-administration and hold glucose monitoring as ordered. We will also obtain a dietary evaluation for nutritional counseling and healthier food choices. We will follow. Mikki Pehlps MD [facility] # [id number]
[2019-02-15 06:22] LABS: BASO # 0.1 K/uL (0.0-0.2); BASO % 1.1 % (0.0-2.0); EOS # 0.3 K/uL (0.0-0.7); EOS % 4.3 % (0.0-4.0); HEMOGLOBIN 12.6 g/dL (12.0-18.0); LYMPH # 3.2 K/uL (1.0-4.3); LYMPH % 43.9 % (20.0-40.0); MEAN CELL VOLUME 88.5 fL (80.0-94.0); MEAN CORPUSCULAR HEMOGLOBIN 30.8 pg (27.0-31.0); MEAN CORPUSCULAR HGB CONC 34.8 g/dL (33.0-37.0); MEAN PLATELET VOLUME 9.4 fL (7.2-11.7); MONO # 0.5 K/uL (0.0-0.8); MONO % 7.5 % (0.0-10.0); NEUT # 3.2 K/uL (1.8-7.0); NEUT % 43.2 % (50.0-75.0); NRBC % 0.1 % (0.0-2.0); RBC 4.1 Mil/uL (4.40-5.90); RED CELL DISTRIBUTION WIDTH 19.4 % (11.5-14.5); WHITE BLOOD COUNT 7.3 K/uL (4.8-10.8)
[2019-02-15 06:50] LABS: LDL CHOLESTEROL 81 mg/dL (0-129)
[2019-02-15 06:54] LABS: ALB/GLOB RATIO 1.5 (1.0-2.1); ALBUMIN 3.2 g/dL (3.5-5.0); ALT/SGPT 26 U/L (21-72); AST/SGOT 14 U/L (17-59); BLOOD UREA NITROGEN 5 mg/dL (9-20); CALCIUM 8.2 mg/dl (8.6-10.4); GFR NON-AFRICAN AMERICAN > 60; HDL CHOLESTEROL 29 mg/dL (30-70)
--- NOTE | 2019-02-15 07:52 | CON ---
DATE: 02/14/2019 LOCATION: The patient currently is in the ICU, bed #6. HISTORY OF PRESENT ILLNESS: This is a 49-year-old [place] male with no previous medical history at all. No medications at home. He has been admitted basically with diabetic ketoacidosis. This patient has few day history of nausea and vomiting, not eating, weakness, and also some weight loss as well as polyuria and polydipsia. There was no previous history of diabetes mellitus and no family history of diabetes mellitus as well. The patient basically is healthy and works as an [employer] truck driver. There was no preceding fever, chills, bronchitis, cough, urinary burning, or other symptoms of possibility of infection triggering his diabetic ketoacidosis. THE PATIENT HAS NO ALLERGIES, but in his social history, he is a smoker and also social moderate weekend drinker. He has had no drinking two days right now. PHYSICAL EXAMINATION: GENERAL: At the moment, he is alert and oriented. The vomiting just stopped this morning. He is still n.p.o. He is fully alert and oriented. Gives the history well. VITAL SIGNS: Blood pressure is 120/70, heart rate is 80. HEAD AND NECK: Unremarkable. HEART: S1, S2. No gallop, murmur, or rub. LUNGS: Clear. ABDOMEN: Slightly sensitive to palpation at the epigastric area, but essentially benign. Bowel sounds are normal. EXTREMITIES: There is no peripheral edema. SKIN: No skin issues observed. LABORATORY DATA: On admission to emergency room, his initial blood work showed glucose level 452, creatinine 1, BUN 12, sodium 133, potassium 5.1, CO2 only 5, and chloride 98, anion gap was elevated to 28. The patient received the bicarb in the emergency room. He was placed also on IV at 200 mL/hour originally 0.9 saline, subsequently D5 0.9 saline and kept on intravenous insulin drip according to sliding scale. The followup blood work shows glucose level 264, creatinine 0.8, potassium 4.7, sodium 134, bicarb still at 5, but 2 hours later, CO2 is up to 7, anion gap is down to 23, potassium is 3.7, phosphate is low at 1.7, creatinine is 0.8, and glucose level is 215. At this time, the patient is receiving D5 0.9 saline at 200 mL/hour, IV insulin drip according to the scale, which seems to be affective, starting at 3 units with sugar of 151 to 200 and a maximum rate of 8 units per hour for glucose over 450. He is also receiving supplements of potassium chloride or potassium sulfate according to his electrolyte panel. At this moment, he is still n.p.o. IMPRESSION: New-onset diabetes mellitus presenting as diabetic ketoacidosis in this young individual 49-year-old with some history of alcohol use, currently not very heavy but consistent for years. The question here is if this has a relation to the newly diagnosed diabetes mellitus. On the other hand, rule out latent autoimmune diabetes in adults diabetes type. The current therapy would be to continue present orders of IV insulin drip as well as IV fluids with potassium as supplementation. Continue monitoring blood work as per order. Fluid level would be adjusted to the patient's serum sodium level. Once stable, the patient would be started on clear liquid diet. Complete diabetic education is needed due to the new onset of this condition. The patient was already initially instructed by his who was present at bedside about need for dietary adjustments as well as need to start insulin therapy at this time as well as start alcohol use and smoking. The patient agreed and his is very cooperative and willing to . In addition to present lab work, I would suggest also obtaining amylase and lipase level and fasting C-peptide level in the morning. Dr. Mikki Phelps will take over this patient's care as of tomorrow. Liz Boykin MD
[2019-02-15] MEDS: Potassium Chloride 20 mEq/15 ml LIQ UD PO SCH ×4 (08:15→11:38)
[2019-02-15] MEDS: (Novolog) Insulin Aspart, Recombinant 100 u/ml 10 ml vial SC SCH ×8 (08:15→21:05)
[2019-02-15] MEDS ORDERED: Potassium Phosphate 15 MMOLE in Sodium Chloride 0.9% 250 ML IV ONE (09:00)
[2019-02-15] MEDS: Thiamine 100 mg/ml Inj IM SCH (09:22)
[2019-02-15] MEDS: Enoxaparin 40 mg Syringe SC SCH (09:22)
[2019-02-15] MEDS: Sodium Chloride 0.45% 1,000 ML IV SCH ×2 (09:34)
--- NOTE | 2019-02-15 13:46 | CP.PCM.PN ---
Subjective - Date & Time of Evaluation Date of Evaluation: 02/15/19 - Subjective Subjective: patient examined today no nausea no vomiting no diarrhea no dizziness no fever no shortness of breath Objective - Vital Signs/Intake and Output Vital Signs (last 24 hours): Temp Pulse Resp BP Pulse Ox 97.5 F L 73 19 124/89 100 02/15/19 12:00 02/15/19 13:00 02/15/19 13:00 02/15/19 12:55 02/15/19 13:00 Intake and Output: 02/15/19 02/15/19 06:59 18:59 Intake Total 1740 929 Output Total 1600 1000 Balance 140 -71 - Medications Medications: Current Medications Enoxaparin Sodium (Lovenox) 40 mg SC DAILY [facility] Last Admin: 02/15/19 09:22 Dose: 40 mg Famotidine (Pepcid) 20 mg IVP DAILY [facility] Last Admin: 02/15/19 09:23 Dose: 20 mg Insulin Aspart (Novolog) 10 unit SC AC [facility] Last Admin: 02/15/19 11:41 Dose: 10 u Insulin Aspart (Novolog) 0 unit SC ACHS [facility] Last Admin: 02/15/19 11:39 Dose: Not Given Insulin Glargine (Lantus) 24 unit SC HS [facility] Last Admin: 02/14/19 21:49 Dose: 24 units Lorazepam (Ativan) 1 mg IVP Q6H PRN PRN Reason: Symptoms of alcohol withdrawl Metoclopramide HCl (Reglan) 10 mg IVP Q6H PRN PRN Reason: Nausea/Vomiting Nicotine (Nicoderm Cq) 1 patch TD DAILY [facility] Last Admin: 02/15/19 09:23 Dose: 1 patch Thiamine HCl (Vitamin B1 Inj) 100 mg IM DAILY [facility] Stop: 02/16/19 10:01 Last Admin: 02/15/19 09:22 Dose: 100 mg - Labs Labs: 02/15/19 06:18 02/15/19 06:18 PT 10.3 SECONDS (9.7-12.2) 02/14/19 00:40 INR 0.9 02/14/19 00:40 APTT 37.0 SECONDS (21-34) H 02/14/19 00:40 - Constitutional Appears: Well - Head Exam Head Exam: ATRAUMATIC, NORMAL INSPECTION, NORMOCEPHALIC - Eye Exam Eye Exam: EOMI, Normal appearance, PERRL Pupil Exam: NORMAL ACCOMODATION, PERRL - ENT Exam ENT Exam: Mucous Membranes Moist, Normal Exam - Neck Exam Neck Exam: Full ROM, Normal Inspection. absent: Lymphadenopathy - Respiratory Exam Respiratory Exam: Decreased Breath Sounds - Cardiovascular Exam Cardiovascular Exam: REGULAR RHYTHM, +S1, +S2 - GI/Abdominal Exam GI & Abdominal Exam: Soft, Diminished Bowel Sounds - Rectal Exam Rectal Exam: Deferred - Neurological Exam Neurological Exam: Oriented x3 Assessment and Plan - Assessment and Plan (Free Text) Plan: medications reviewed ativan lantus lovenox nicoderm cq novolog pepcid reglan labs reviewed vitals reviewed
[2019-02-15 16:29] LABS: BLOOD UREA NITROGEN 5 mg/dL (9-20); CALCIUM 8.9 mg/dl (8.6-10.4); GFR NON-AFRICAN AMERICAN > 60
--- NOTE | 2019-02-15 19:53 | CARD ---
APPROVED REPORT Date of service: 02/14/2019 EKG Measurement Heart [id number] <Conclusion> Normal sinus rhythm Normal ECG
--- NOTE | 2019-02-15 20:56 | PN ---
DATE: 02/15/2019 ENDOCRINOLOGY FOLLOWUP NOTE LOCATION: Room 6, ICU. SUBJECTIVE: This is a 49-year-old male with recent diagnosis of uncontrolled type 1 insulin-dependent diabetes, presenting here with diabetic ketoacidosis and dehydration and is now being followed closely for metabolic management. His glycemic levels are fluctuating but improved overnight and have ranged from 163 to 243 and 266 mg/dL. LABORATORY DATA: His chemistries today showed a BUN of 5, sodium 135, potassium 2.7, chloride 104, CO2 of 18, glucose 211, and creatinine 0.5. His hemoglobin A1c was reported as 11.5% which is clearly elevated and indicative of marked hyperglycemic accelerations even prior to this admission over the last few months as noted. His serum C-peptide level is pending at this time, and this will really give us a more clear picture of whether he has indeed type 1 insulin-dependent diabetes or type 2 insulin-requiring diabetes as noted. PLAN OF MANAGEMENT: We will modify his basal and bolus insulin regimen to optimize metabolic control. We will increase his basal insulin to 30 units subcu at bedtime daily to start tonight. We will also continue the low-dose correction scale using Novolog insulin to obviate hypoglycemia, and detailed orders have been given. We will titrate also his prandial insulin and increase the NovoLog to 12 units t.i.d. before meals to start at dinnertime today as ordered. We will obtain serial chemistries and supplement accordingly as needed. Concur with the potassium supplementation as given also today. With the mild metabolic acidosis, the patient would actually still benefit from continued IV hydration as indicated. They apparently stopped the IV fluids overnight as noted, but he still has mild metabolic acidosis with a CO2 of 18 with ongoing potassium deficiency as expected thereof. We will initiate diabetic education and dietary instructions to include insulin self-administration and glucose monitoring as noted. We will also encourage healthier food choices with a nutritional evaluation prior to discharge. Moreover, we will highly encourage smoking cessation especially with his recent diagnosis of uncontrolled diabetes to obviate future cardiovascular complications thereof. We will obtain serial chemistries and supplement accordingly as needed. We will follow. Mikki Phelps MD
[2019-02-15] MEDS ORDERED: (Lantus) Insulin Glargine, Recombinant SC SCH (22:00)
[2019-02-16 07:53] VITALS: RESP 20
[2019-02-16] MEDS: (Novolog) Insulin Aspart, Recombinant 100 u/ml 10 ml vial SC SCH ×7 (09:15→21:41)
[2019-02-16] MEDS: Enoxaparin 40 mg Syringe SC SCH (09:49)
[2019-02-16] MEDS: Thiamine 100 mg/ml Inj IM SCH (10:51)
[2019-02-16 12:27] LABS: C-PEPTIDE 0.41 ng/mL (0.80-3.85)
[2019-02-16] MEDS ORDERED: Bisacodyl 5mg EC Tab PO ONE (15:00)
--- NOTE | 2019-02-16 15:28 | CP.PCM.PN ---
Subjective - Date & Time of Evaluation Date of Evaluation: 02/16/19 Time of Evaluation: 08:45 - Subjective Subjective: Fingerstick is much better Patient is transferred to the floor No abdominal pain No nausea no vomiting Fingerstick is between 1 63-2 79 Family bedside no fever Objective - Vital Signs/Intake and Output Vital Signs (last 24 hours): Temp Pulse Resp BP Pulse Ox 98.7 F 81 20 112/79 99 02/16/19 07:00 02/16/19 07:00 02/16/19 07:00 02/16/19 07:00 02/16/19 07:00 Intake and Output: 02/16/19 02/16/19 06:59 18:59 Intake Total 240 280 Balance 240 280 - Medications Medications: Current Medications Docusate Sodium (Colace) 100 mg PO DAILY [facility] Last Admin: 02/16/19 09:49 Dose: 100 mg Enoxaparin Sodium (Lovenox) 40 mg SC DAILY [facility] Last Admin: 02/16/19 09:49 Dose: 40 mg Famotidine (Pepcid) 20 mg IVP DAILY [facility] Last Admin: 02/16/19 09:49 Dose: 20 mg Insulin Aspart (Novolog) 0 unit SC ACHS [facility] Last Admin: 02/16/19 13:14 Dose: Not Given Insulin Aspart (Novolog) 14 unit SC AC ZANE Insulin Glargine (Lantus) 34 unit SC HS [facility] Lorazepam (Ativan) 1 mg IVP Q6H PRN PRN Reason: Symptoms of alcohol withdrawl Metoclopramide HCl (Reglan) 10 mg IVP Q6H PRN PRN Reason: Nausea/Vomiting Nicotine (Nicoderm Cq) 1 patch TD DAILY [facility] Last Admin: 02/16/19 09:49 Dose: 1 patch - Labs Labs: 02/15/19 06:18 02/15/19 15:32 PT 10.3 SECONDS (9.7-12.2) 02/14/19 00:40 INR 0.9 02/14/19 00:40 APTT 37.0 SECONDS (21-34) H 02/14/19 00:40 - Constitutional Appears: Well - Head Exam Head Exam: ATRAUMATIC, NORMAL INSPECTION, NORMOCEPHALIC - Eye Exam Eye Exam: EOMI, Normal appearance, PERRL Pupil Exam: NORMAL ACCOMODATION, PERRL - ENT Exam ENT Exam: Mucous Membranes Moist, Normal Exam - Neck Exam Neck Exam: Full ROM, Normal Inspection. absent: Lymphadenopathy - Respiratory Exam Respiratory Exam: Decreased Breath Sounds - Cardiovascular Exam Cardiovascular Exam: REGULAR RHYTHM, +S1, +S2 - GI/Abdominal Exam GI & Abdominal Exam: Soft, Diminished Bowel Sounds - Rectal Exam Rectal Exam: Deferred - Neurological Exam Neurological Exam: Oriented x3 Assessment and Plan - Assessment and Plan (Free Text) Plan: Plan we will continue Lantus 14 units Follow-up with dental consult No potassium supplementation Monitor the potassium closely Electrolyte supplementations
--- NOTE | 2019-02-16 20:45 | PN ---
DATE: 02/16/2019 ENDOCRINOLOGY FOLLOWUP NOTE LOCATION: Room 668. SUBJECTIVE: This is a 49-year-old male with recent diagnosis and evaluation for uncontrolled type 1 insulin-dependent diabetes, presenting here with diabetic ketoacidosis and dehydration and has since then improved clinically and metabolically as noted thereof. His glycemic levels today have ranged from 211 to 279 mg/dL. LABORATORY DATA: His chemistry showed a BUN of 5, sodium 136, potassium 4.8, chloride 103, CO2 of 22, glucose 255, and creatinine 0.4. ASSESSMENT: This is a 49-year-old male with uncontrolled and decompensated type 1 insulin-dependent diabetes, now being followed closely for metabolic management. He received intensive insulin therapy, then insulin drip infusion as noted. He also received vigorous intravenous hydration and has improved hemodynamically and clinically as noted also. PLAN OF MANAGEMENT: We will continue the dose titration of this insulin regimen and increase the NovoLog to 14 units t.i.d. before meals to start today as ordered. We will also increase the basal insulin with Lantus given as 34 units subcutaneous at bedtime daily to start tonight. We will titrate incrementally as indicated to optimize metabolic control. We will obtain serial chemistries and supplement accordingly as needed. We will follow. Mikki Phelps MD
[2019-02-16] MEDS ORDERED: (Lantus) Insulin Glargine, Recombinant SC SCH (22:00)
[2019-02-17] MEDS: (Novolog) Insulin Aspart, Recombinant 100 u/ml 10 ml vial SC SCH ×7 (08:05→21:15)
--- NOTE | 2019-02-17 08:26 | PN ---
DATE: 02/17/2019 ENDOCRINOLOGY FOLLOWUP NOTE LOCATION: Room 668. SUBJECTIVE: This is a 49-year-old male with recent evaluation and diagnosis of uncontrolled type 1 insulin-dependent diabetes, presenting here with diabetic ketoacidosis and dehydration and is now being followed closely for metabolic management. His glycemic levels are still fluctuating as noted overnight with glucose levels ranging from 279 to 287 mg/dL. His chemistries showed a BUN of 5, sodium 136, potassium 4.8, chloride 103, CO2 of 22, glucose 255, creatinine 0.4. ASSESSMENT AND PLAN: So, at this time, we will modify once again his basal and bolus insulin regimen and increase the Lantus as basal insulin at the higher dose of 40 units subcutaneously at bedtime daily to start tonight. We will also continue the NovoLog given as 14 units three times a day before meals as ordered. We will continue the diabetic education to include insulin self-administration as noted and given. We will follow and advise accordingly. Mikki Phelps MD
[2019-02-17] MEDS: Enoxaparin 40 mg Syringe SC SCH (09:21)
--- NOTE | 2019-02-17 20:55 | CP.PCM.PN ---
Subjective - Date & Time of Evaluation Date of Evaluation: 02/17/19 Time of Evaluation: 07:41 - Subjective Subjective: patient seen and examined today no shortness of breath no vomiting no dizziness no diarrhea no fever no nausea Objective - Vital Signs/Intake and Output Vital Signs (last 24 hours): Temp Pulse Resp BP Pulse Ox 97.5 F L 71 20 132/80 97 02/17/19 15:00 02/17/19 15:00 02/17/19 15:00 02/17/19 15:00 02/17/19 15:00 - Medications Medications: Current Medications Bisacodyl (Dulcolax) 10 mg [place] ONCE PRN PRN Reason: Constipation Docusate Sodium (Colace) 100 mg PO DAILY [facility] Last Admin: 02/17/19 09:20 Dose: 100 mg Enoxaparin Sodium (Lovenox) 40 mg SC DAILY [facility] Last Admin: 02/17/19 09:21 Dose: 40 mg Famotidine (Pepcid) 20 mg IVP DAILY [facility] Last Admin: 02/17/19 09:20 Dose: 20 mg Insulin Aspart (Novolog) 0 unit SC ACHS [facility] Last Admin: 02/17/19 17:35 Dose: Not Given Insulin Aspart (Novolog) 14 unit SC AC [facility] Last Admin: 02/17/19 17:00 Dose: 14 units Insulin Glargine (Lantus) 40 unit SC HS [facility] Lorazepam (Ativan) 1 mg IVP Q6H PRN PRN Reason: Symptoms of alcohol withdrawl Metoclopramide HCl (Reglan) 10 mg IVP Q6H PRN PRN Reason: Nausea/Vomiting Nicotine (Nicoderm Cq) 1 patch TD DAILY [facility] Last Admin: 02/17/19 09:21 Dose: 1 patch - Labs Labs: 02/15/19 06:18 02/15/19 15:32 PT 10.3 SECONDS (9.7-12.2) 02/14/19 00:40 INR 0.9 02/14/19 00:40 APTT 37.0 SECONDS (21-34) H 02/14/19 00:40 - Constitutional Appears: Well - Head Exam Head Exam: ATRAUMATIC, NORMAL INSPECTION, NORMOCEPHALIC - Eye Exam Eye Exam: EOMI, Normal appearance, PERRL Pupil Exam: NORMAL ACCOMODATION, PERRL - ENT Exam ENT Exam: Mucous Membranes Moist, Normal Exam - Neck Exam Neck Exam: Full ROM, Normal Inspection. absent: Lymphadenopathy - Respiratory Exam Respiratory Exam: Decreased Breath Sounds - Cardiovascular Exam Cardiovascular Exam: REGULAR RHYTHM, +S1, +S2 - GI/Abdominal Exam GI & Abdominal Exam: Soft, Diminished Bowel Sounds - Rectal Exam Rectal Exam: Deferred - Neurological Exam Neurological Exam: Oriented x3 Assessment and Plan - Assessment and Plan (Free Text) Plan: plan discussed with patient modern complexity of care vitals reviewed labs reviewed medications reviewed ativan colace dulcolax lantus lovenox nicoderm cq novolog pepcid reglan
[2019-02-17] MEDS ORDERED: (Lantus) Insulin Glargine, Recombinant SC SCH (22:00)
[2019-02-18] MEDS: (Novolog) Insulin Aspart, Recombinant 100 u/ml 10 ml vial SC SCH ×6 (07:58→21:05)
[2019-02-18] MEDS: Enoxaparin 40 mg Syringe SC SCH (09:38)
--- NOTE | 2019-02-18 10:15 | PN ---
DATE: 02/18/2019 ENDOCRINOLOGY FOLLOWUP NOTE LOCATION: Room 668. SUBJECTIVE: This is a 49-year-old male with recent uncontrolled type 1 insulin dependent diabetes, now being followed closely for metabolic management. He continues to have glycemic fluctuations as noted overnight and the glucose values have ranged from 116 to 259 and 320 mg/dL. His chemistries showed BUN of 5, sodium 136, potassium 4.8, chloride 103, CO2 22, glucose 255, and creatinine 0.4. PLAN OF MANAGEMENT: So at this time, we will modify once again his basal and bolus insulin regimen and increase the prandial insulin with NovoLog given 16 units t.i.d. as ordered. We will also titrate his basal insulin plan to be given as 44 units subcu at bedtime daily as ordered. We will obtain serial chemistries and supplement accordingly as needed. We will follow with you. Mikki Phelps MD
--- NOTE | 2019-02-18 20:05 | CP.PCM.PN ---
Subjective - Date & Time of Evaluation Date of Evaluation: 02/18/19 Time of Evaluation: 11:15 - Subjective Subjective: Patient nausea No vomiting No fever Objective - Vital Signs/Intake and Output Vital Signs (last 24 hours): Temp Pulse Resp BP Pulse Ox 98.2 F 64 20 128/88 99 02/18/19 15:00 02/18/19 15:00 02/18/19 15:00 02/18/19 15:00 02/18/19 15:00 - Medications Medications: Current Medications Bisacodyl (Dulcolax) 10 mg [place] ONCE PRN PRN Reason: Constipation Docusate Sodium (Colace) 100 mg PO DAILY [facility] Last Admin: 02/18/19 09:41 Dose: 100 mg Enoxaparin Sodium (Lovenox) 40 mg SC DAILY [facility] Last Admin: 02/18/19 09:38 Dose: 40 mg Famotidine (Pepcid) 20 mg IVP DAILY [facility] Last Admin: 02/18/19 09:40 Dose: 20 mg Insulin Aspart (Novolog) 0 unit SC ACHS [facility] Last Admin: 02/18/19 17:29 Dose: 3 units Insulin Aspart (Novolog) 16 unit SC AC [facility] Last Admin: 02/18/19 17:30 Dose: 16 units Insulin Glargine (Lantus) 44 unit SC HS [facility] Lorazepam (Ativan) 1 mg IVP Q6H PRN PRN Reason: Symptoms of alcohol withdrawl Metoclopramide HCl (Reglan) 10 mg IVP Q6H PRN PRN Reason: Nausea/Vomiting Nicotine (Nicoderm Cq) 1 patch TD DAILY [facility] Last Admin: 02/18/19 09:41 Dose: 1 patch - Labs Labs: 02/15/19 06:18 02/15/19 15:32 PT 10.3 SECONDS (9.7-12.2) 02/14/19 00:40 INR 0.9 02/14/19 00:40 APTT 37.0 SECONDS (21-34) H 02/14/19 00:40 - Constitutional Appears: Well - Head Exam Head Exam: ATRAUMATIC, NORMAL INSPECTION, NORMOCEPHALIC - Eye Exam Eye Exam: EOMI, Normal appearance, PERRL Pupil Exam: NORMAL ACCOMODATION, PERRL - ENT Exam ENT Exam: Mucous Membranes Moist, Normal Exam - Neck Exam Neck Exam: Full ROM, Normal Inspection. absent: Lymphadenopathy - Respiratory Exam Respiratory Exam: Decreased Breath Sounds - Cardiovascular Exam Cardiovascular Exam: REGULAR RHYTHM, +S1, +S2 - GI/Abdominal Exam GI & Abdominal Exam: Soft, Diminished Bowel Sounds - Rectal Exam Rectal Exam: Deferred - Neurological Exam Neurological Exam: Oriented x3 Assessment and Plan (1) DKA (diabetic ketoacidoses) Status: Acute (2) Diabetes mellitus, new onset Status: Acute - Assessment and Plan (Free Text) Plan: Patient's bedside Patient's fingerstick is much better Plan discharge tomorrow after diabetic education and learn how to take insect injections Subcu Lantus Fingerstick at home We will see the patient as an outpatient with the reading Plan of care explained to the patient Moderate to severe complexity of care I discussed with the patient and family ativan colace dulcolax lantus lovenox nicoderm cq novolog pepcid reglan medications reviewed labs reviewed vitals reviewed
[2019-02-18] MEDS ORDERED: (Lantus) Insulin Glargine, Recombinant SC SCH (22:00)
[2019-02-19] MEDS: (Novolog) Insulin Aspart, Recombinant 100 u/ml 10 ml vial SC SCH ×7 (07:30→21:20)
[2019-02-19 08:54] LABS: HEMOGLOBIN 12.9 g/dL (12.0-18.0); MEAN CELL VOLUME 90.1 fL (80.0-94.0); MEAN CORPUSCULAR HEMOGLOBIN 30.7 pg (27.0-31.0); MEAN PLATELET VOLUME 9.8 fL (7.2-11.7); RBC 4.19 Mil/uL (4.40-5.90); RED CELL DISTRIBUTION WIDTH 19.3 % (11.5-14.5); WHITE BLOOD COUNT 7.5 K/uL (4.8-10.8)
[2019-02-19 09:21] LABS: ALB/GLOB RATIO 1.5 (1.0-2.1); ALBUMIN 3.4 g/dL (3.5-5.0); ALT/SGPT 98 U/L (21-72); AST/SGOT 126 U/L (17-59); BLOOD UREA NITROGEN 4 mg/dL (9-20); CALCIUM 8.8 mg/dl (8.6-10.4); GFR NON-AFRICAN AMERICAN > 60
[2019-02-19] MEDS: Enoxaparin 40 mg Syringe SC SCH (09:36)
--- NOTE | 2019-02-19 17:05 | CP.PCM.DIS ---
Provider - Provider Date of Admission: 02/14/19 01:15 Attending physician: Michelle Catalan MD Consults: 02/14/19 02:51 Diabetic Education Referral Routine Comment: Physician Instructions: Reason For Exam: New unset diabetes Mellitus 02/14/19 03:21 Endocrinology Consult Routine Comment: Consulting Provider: Mikki Phelps Consulting Physician: Mikki Phelps Reason for Consult: DKA/ New unset Diabetes Mellitus 02/19/19 10:45 Diabetic Education Referral Routine Comment: Physician Instructions: Reason For Exam: new diabetic pt Time Spent in preparation of Discharge (in minutes): 15 Diagnosis - Discharge Diagnosis (1) DKA (diabetic ketoacidoses) Status: Acute (2) Diabetes mellitus, new onset Status: Acute Hospital Course - Lab Results Lab Results: Micro Results 02/14/19 07:30 Blood-Venous Blood Culture - Final NO GROWTH AFTER 5 DAYS 02/14/19 07:30 Blood-Venous Gram Stain - Final TEST NOT PERFORMED 02/14/19 05:56 Blood-Venous Blood Culture - Final NO GROWTH AFTER 5 DAYS 02/14/19 05:56 Blood-Venous Gram Stain - Final TEST NOT PERFORMED 02/14/19 07:13 Naris MRSA Culture (Admit) - Final MRSA NOT DETECTED Most Recent Lab Values WBC 7.5 K/uL (4.8-10.8) 02/19/19 08:42 RBC 4.19 Mil/uL (4.40-5.90) L 02/19/19 08:42 Hgb 12.9 g/dL (12.0-18.0) 02/19/19 08:42 Hct 37.8 % (35.0-51.0) 02/19/19 08:42 MCV 90.1 fL (80.0-94.0) 02/19/19 08:42 MCH 30.7 pg (27.0-31.0) 02/19/19 08:42 MCHC 34.0 g/dL (33.0-37.0) 02/19/19 08:42 RDW 19.3 % (11.5-14.5) H 02/19/19 08:42 Plt Count 207 K/uL (130-400) 02/19/19 08:42 MPV 9.8 fL (7.2-11.7) 02/19/19 08:42 Neut % (Auto) 43.2 % (50.0-75.0) L 02/15/19 06:18 Lymph % (Auto) 43.9 % (20.0-40.0) H 02/15/19 06:18 [place] % (Auto) 7.5 % (0.0-10.0) 02/15/19 06:18 Eos % (Auto) 4.3 % (0.0-4.0) H 02/15/19 06:18 Baso % (Auto) 1.1 % (0.0-2.0) 02/15/19 06:18 Neut # (Auto) 3.2 K/uL (1.8-7.0) 02/15/19 06:18 Lymph # (Auto) 3.2 K/uL (1.0-4.3) 02/15/19 06:18 [place] # (Auto) 0.5 K/uL (0.0-0.8) 02/15/19 06:18 Eos # (Auto) 0.3 K/uL (0.0-0.7) 02/15/19 06:18 Baso # (Auto) 0.1 K/uL (0.0-0.2) 02/15/19 06:18 PT 10.3 SECONDS (9.7-12.2) 02/14/19 00:40 INR 0.9 02/14/19 00:40 APTT 37.0 SECONDS (21-34) H 02/14/19 00:40 pO2 18 mm/Hg (30-55) L 02/14/19 05:39 VBG pH 7.10 (7.32-7.43) L* 02/14/19 05:39 VBG pCO2 26 mmHg (40-60) L 02/14/19 05:39 VBG HCO3 7.0 mmol/L 02/14/19 05:39 VBG Total CO2 8.9 mmol/L (22-28) L 02/14/19 05:39 VBG O2 Sat (Calc) 43.4 % (40-65) 02/14/19 05:39 VBG Base Excess -20.1 mmol/L (0.0-2.0) L 02/14/19 05:39 VBG Potassium 3.6 mmol/L (3.6-5.2) 04/24/19 05:39 Sodium 135.0 mmol/l (132-148) 02/14/19 05:39 Chloride 103.0 mmol/L (98-107) 02/14/19 05:39 Glucose 221 mg/dl (75-110) H 02/14/19 05:39 Lactate 1.8 mmol/L (0.7-2.1) 02/14/19 05:39 Crit Value Called To Radha rn 02/14/19 05:39 Crit Value Called By Luigi filler room attendant 02/14/19 05:39 Crit Value Read Back Y 02/14/19 05:39 Blood Gas Notified Time 542 02/14/19 05:39 Sodium 142 mmol/L (132-148) 02/19/19 08:42 Potassium 3.4 mmol/L (3.6-5.2) L 02/19/19 08:42 Chloride 101 mmol/L (98-107) 02/19/19 08:42 Carbon Dioxide 32 mmol/L (22-30) H 02/19/19 08:42 Anion Gap 12 (10-20) 02/19/19 08:42 BUN 4 mg/dL (9-20) L 02/19/19 08:42 Creatinine 0.4 mg/dL (0.8-1.5) L 02/19/19 08:42 Est GFR ( Amer) > 60 02/19/19 08:42 Est GFR (Non-Af Amer) > 60 02/19/19 08:42 POC Glucose (mg/dL) 191 mg/dL (65-110) H 02/19/19 16:26 Random Glucose 120 mg/dL (75-110) H D 02/19/19 08:42 Hemoglobin A1c 11.5 % (4.2-6.5) H 02/14/19 02:23 C-Peptide 0.41 ng/mL (0.80-3.85) L 02/15/19 07:51 Calcium 8.8 mg/dl (8.6-10.4) 02/19/19 08:42 Phosphorus 1.4 mg/dL (2.5-4.5) L 02/15/19 06:18 Magnesium 2.1 mg/dL (1.6-2.3) 02/15/19 06:18 Total Bilirubin 0.2 mg/dL (0.2-1.3) 02/19/19 08:42 AST 126 U/L (17-59) H D 02/19/19 08:42 ALT 98 U/L (21-72) H D 02/19/19 08:42 Alkaline Phosphatase 65 U/L (38-126) 02/19/19 08:42 Total Protein 5.7 g/dL (6.3-8.3) L 02/19/19 08:42 Albumin 3.4 g/dL (3.5-5.0) L 02/19/19 08:42 Globulin 2.3 gm/dL (2.2-3.9) 02/19/19 08:42 Albumin/Globulin Ratio 1.5 (1.0-2.1) 02/19/19 08:42 Triglycerides 136 mg/dL (0-149) 02/15/19 06:18 Cholesterol 118 mg/dL (0-199) 02/15/19 06:18 LDL Cholesterol Direct 81 mg/dL (0-129) 02/15/19 06:18 HDL Cholesterol 29 mg/dL (30-70) L 02/15/19 06:18 Amylase 71 U/L (30-110) 02/14/19 09:02 Lipase 232 U/L (23-300) 02/14/19 09:02 Venous Blood Potassium 3.6 mmol/L (3.6-5.2) 02/14/19 05:39 Urine Color Yellow (YELLOW) 02/14/19 00:40 Urine Clarity Clear (Clear) 02/14/19 00:40 Urine pH 5.0 (5.0-8.0) 02/14/19 00:40 Ur Specific [place] 1.023 (1.003-1.030) 02/14/19 00:40 Urine Protein 2+ mg/dL (NEGATIVE) H 02/14/19 00:40 Urine Glucose (UA) 3+ mg/dL (Normal) H 02/14/19 00:40 Urine Ketones 2+ mg/dL (NEGATIVE) H 02/14/19 00:40 Urine Blood 1+ (NEGATIVE) H 02/14/19 00:40 Urine Nitrate Negative (NEGATIVE) 02/14/19 00:40 Urine Bilirubin Negative (NEGATIVE) 02/14/19 00:40 Urine Urobilinogen Normal mg/dL (0.2-1.0) 02/14/19 00:40 Ur Leukocyte Esterase Neg [place]/uL (Negative) 02/14/19 00:40 Urine WBC (Auto) 1 /hpf (0-5) 02/14/19 00:40 Urine RBC (Auto) 1 /hpf (0-3) 02/14/19 00:40 Ur Squamous Epith Cells < 1 /hpf (0-5) 02/14/19 00:40 Hyaline Casts 11-20 /lpf (0-2) H 02/14/19 00:40 Granular Casts (Auto) 7 /lpf (0-1) 02/14/19 00:40 Urine Opiates Screen Negative (NEGATIVE) 02/14/19 04:38 Urine Methadone Screen Negative (NEGATIVE) 02/14/19 04:38 Ur Barbiturates Screen Negative (NEGATIVE) 02/14/19 04:38 Ur Phencyclidine Scrn Negative (NEGATIVE) 02/14/19 04:38 Ur Amphetamines Screen Negative (NEGATIVE) 02/14/19 04:38 U Benzodiazepines Scrn Negative (NEGATIVE) 02/14/19 04:38 U Oth Cocaine Metabols Negative (NEGATIVE) 02/14/19 04:38 U Cannabinoids Screen Negative (NEGATIVE) 02/14/19 04:38 B-Hydroxybutyrate 10.1 mM (0.02-0.27) H 02/14/19 02:23 - Hospital Course Hospital Course: Admitted with the DKA status post diabetic education for discharge discussed with the educations given for 1 hour to be given Lantus and will see the office on the patient understands Moderate to high complexity of care. Plan of care discussed with patient &/or family & staff. Medications reviewed and reconciled. Labs reviewed. Vitals reviewed.Follow-up with the consultations Discharge Exam - Head Exam Head Exam: ATRAUMATIC, NORMAL INSPECTION, NORMOCEPHALIC - Eye Exam Eye Exam: EOMI Pupil Exam: Fixed, NORMAL ACCOMODATION - ENT Exam ENT Exam: Mucous Membranes Moist - Neck Exam Neck exam: Full Rom, Normal Inspection - Respiratory Exam Respiratory Exam: Decreased Breath Sounds - Cardiovascular Exam Cardiovascular Exam: REGULAR RHYTHM, +S1, +S2 - GI/Abdominal Exam GI & Abdominal Exam: Diminished Bowel Sounds, Soft - Rectal Exam Rectal Exam: Deferred - Neurological Exam Neurological exam: Oriented x3 Discharge Plan - Discharge Medications Prescriptions: Insulin Aspart (Niacinamide) [Fiasp 100 Unit/ml Flextouch] 100 unit SQ ACHS 30 Days insuln.pen Insulin Glargine, Recombina [Lantus] 44 unit SC HS 30 Days unit - Follow Up Plan Condition: GUARDED Disposition: HOME/ ROUTINE Instructions: Diabetic Ketoacidosis (DC), Diabetic Ketoacidosis (GEN) Additional Instructions: DISCHARGE TO HOME AFTER DIABETIC TEACHING IS DONE FOLLOW-UP WITH PMD IN 1 WEEK FOLLOW-UP WITH ENDOCRINE IN 1-2 WEEKS ACTIVITY TOLERATED DIABETIC TEACHING DONE TAUGHT PATIENT THE DEFINITION, SIGNS AND SYMPTOMS, TREATMENT, AND PREVENTION OF HYPERGLYCEMIA AND HYPOGLYCEMIA PROVIDED INFORMATION ON CONSISTENT EATING PATTERNS ADVISED PATIENT WHEN AND HOW TO TAKE [id number] MEDICATIONS INSTRUCT THE PATIENT ON SPECIFIC MEASURES FOR MANAGING DIABETES EDUCATED PATIENT ON PROPER USE AND DISPOSAL OF NEEDLES AND SYRINGES EDUCATED PATIENT HOW TO TAKE AND ADMINISTER PRESCRIPTION MEDICATIONS CONTACT HEALTH CARE PROVIDER IF HYPOGLYCEMIA OCCURS MORE THAN TWICE A WEEK CALL DR Nataly CATALAN OR GO TO THE EMERGENCY ROOM IF SYMPTOMS WORSEN OR RETURN Referrals: Mikki Phelps MD [Medical Doctor] - Kylah Catalan MD [Staff Provider] -
--- NOTE | 2019-02-19 21:57 | PN ---
DATE: 02/19/2019 ENDOCRINOLOGY FOLLOWUP NOTE LOCATION: Room 668. SUBJECTIVE: This is a 49-year-old male with recent uncontrolled type 1 insulin independent diabetes, now being followed closely for metabolic management. His glycemic levels are fluctuating, and the glucose values have ranged from 142 to 227 mg/dL. However, it daisy to 311 at lunch time today as noted. His chemistries showed a BUN of 4, sodium 142, potassium 3.4, chloride 101, CO2 of 32, glucose 120, and creatinine 3.4. ASSESSMENT: This is a 49-year-old male with uncontrolled and decompensated type 1 insulin independent diabetes, presenting with diabetic ketoacidosis and dehydration and has now improved clinically and metabolically as noted thereof. PLAN OF MANAGEMENT: We would recommend for eventual discharge. The more affordable insulin vials as apparently he was being charged 200 to 700 dollars for the insulin pens by the pharmacy as noted. We would recommend the use of the insulin vials on the prevalent and much cheaper and affordable insulin regimen if they do not cover the correct insulin dose preparations as given. For now, we would recommend he goes home on the current dose of Lantus at 40 units subcu at bedtime daily as ordered with NovoLog given as 14 units subcu t.i.d. before meals as ordered. Weather he is given the vials or the pens is really more a question of convenience but because of the formidable expense of the insulin pens, we will switch over to the use of the insulin vials if okay with the patient as it was actually taught by our nurse educator, this aforementioned use of the insulin pens and glucose monitoring thereof. We will follow. Mikki Phelps MD
[2019-02-19] MEDS ORDERED: (Lantus) Insulin Glargine, Recombinant SC SCH (22:00)
[2019-02-20] MEDS: (Novolog) Insulin Aspart, Recombinant 100 u/ml 10 ml vial SC SCH ×6 (08:08→17:01)
[2019-02-20] MEDS: Enoxaparin 40 mg Syringe SC SCH (11:11)
--- NOTE | 2019-02-20 13:25 | CP.PCM.PN ---
Subjective - Date & Time of Evaluation Date of Evaluation: 02/20/19 Time of Evaluation: 13:00 Objective - Vital Signs/Intake and Output Vital Signs (last 24 hours): Temp Pulse Resp BP Pulse Ox 97.8 F 68 20 119/81 98 02/20/19 07:25 02/20/19 07:25 02/20/19 07:25 02/20/19 07:25 02/20/19 07:25 - Medications Medications: Current Medications Bisacodyl (Dulcolax) 10 mg SD ONCE PRN PRN Reason: Constipation Docusate Sodium (Colace) 100 mg PO DAILY [facility] Last Admin: 02/20/19 11:11 Dose: 100 mg Enoxaparin Sodium (Lovenox) 40 mg SC DAILY [facility] Last Admin: 02/20/19 11:11 Dose: 40 mg Famotidine (Pepcid) 20 mg PO DAILY [facility] Insulin Aspart (Novolog) 0 unit SC ACHS [facility] Last Admin: 02/20/19 11:40 Dose: Not Given Insulin Aspart (Novolog) 16 unit SC AC [facility] Last Admin: 02/20/19 12:22 Dose: 16 units Insulin Glargine (Lantus) 46 unit SC HS [facility] Last Admin: 02/19/19 21:20 Dose: 46 units Lorazepam (Ativan) 1 mg IVP Q6H PRN PRN Reason: Symptoms of alcohol withdrawl Metoclopramide HCl (Reglan) 10 mg IVP Q6H PRN PRN Reason: Nausea/Vomiting Nicotine (Nicoderm Cq) 1 patch TD DAILY [facility] Last Admin: 02/20/19 11:11 Dose: 1 patch - Labs Labs: 02/19/19 08:42 02/19/19 08:42 PT 10.3 SECONDS (9.7-12.2) 02/14/19 00:40 INR 0.9 02/14/19 00:40 APTT 37.0 SECONDS (21-34) H 02/14/19 00:40
--- NOTE | 2019-02-20 15:27 | CP.PCM.PN ---
Subjective - Date & Time of Evaluation Date of Evaluation: 02/20/19 Time of Evaluation: 15:37 - Subjective Subjective: alert and oriented with no signs and symptoms of Chest Pain, SOB, or lethargy noted. Objective - Vital Signs/Intake and Output Vital Signs (last 24 hours): Temp Pulse Resp BP Pulse Ox 97.8 F 68 20 119/81 98 02/20/19 07:25 02/20/19 07:25 02/20/19 07:25 02/20/19 07:25 02/20/19 07:25 - Medications Medications: Current Medications Bisacodyl (Dulcolax) 10 mg IA ONCE PRN PRN Reason: Constipation Docusate Sodium (Colace) 100 mg PO DAILY [facility] Last Admin: 02/20/19 11:11 Dose: 100 mg Enoxaparin Sodium (Lovenox) 40 mg SC DAILY [facility] Last Admin: 02/20/19 11:11 Dose: 40 mg Famotidine (Pepcid) 20 mg PO DAILY [facility] Insulin Aspart (Novolog) 0 unit SC ACHS [facility] Last Admin: 02/20/19 11:40 Dose: Not Given Insulin Aspart (Novolog) 16 unit SC AC [facility] Last Admin: 02/20/19 12:22 Dose: 16 units Insulin Glargine (Lantus) 46 unit SC HS [facility] Last Admin: 02/19/19 21:20 Dose: 46 units Lorazepam (Ativan) 1 mg IVP Q6H PRN PRN Reason: Symptoms of alcohol withdrawl Metoclopramide HCl (Reglan) 10 mg IVP Q6H PRN PRN Reason: Nausea/Vomiting Nicotine (Nicoderm Cq) 1 patch TD DAILY [facility] Last Admin: 02/20/19 11:11 Dose: 1 patch - Labs Labs: 02/19/19 08:42 02/19/19 08:42 PT 10.3 SECONDS (9.7-12.2) 02/14/19 00:40 INR 0.9 02/14/19 00:40 APTT 37.0 SECONDS (21-34) H 02/14/19 00:40 Assessment and Plan - Assessment and Plan (Free Text) Assessment: 49 year old male that presented with 3 days of abdominal pain, nausea and vomiting, worsening over the last 24 hours. Pt had about 7-10 episodes of jayson sis, fatigue, and feeling thirsty. Pt DKA improved and Blood Sugars are being controlled. Pt seen and examined. VSS. Activity as tolerated. Pt awake and oriented x3 with no complaints at this time. Discussed discharge with Dr. Nataly Acosta, patient, and family. Diabetic teaching done and patient demonstrated full understanding.
[2019-02-20 15:51] VITALS: BP 133/78; PULSE 70; TEMP 98.7; O2SAT 99
--- NOTE | 2019-02-21 06:57 | PN ---
DATE: 02/20/2019 ENDOCRINOLOGY FOLLOWUP NOTE LOCATION: Room 668. This is a 49-year-old male with recent uncontrolled type 1 insulin-dependent diabetes, presenting here with diabetic ketoacidosis and dehydration and is now being followed closely for metabolic management. His glycemic levels are fluctuating but much improved at this time, and the glucose levels have ranged from 158 to 197 mg/dL last night and it was 191 at breakfast time this morning. His chemistry showed a BUN of 4, sodium 142, potassium 3.4, chloride 101, CO2 of 32, glucose 120 and creatinine 0.4. So at this time, we will continue the same modified basal and bolus insulin regimen with NovoLog given as 60 units subcu t.i.d. before meals as ordered. We will continue the same basal insulin given as Lantus at 46 units subcu at bedtime daily as given. We will titrate incrementally as indicated to optimize metabolic control. We will follow. Mikki Phelps MD
== END 2019-02-20 18:48 | disposition home or self-care (01) | DRG 638 ==
LOC: C.ER 22:51 → C.9I 02-14 01:15 → C.6T 02-16 05:26
PROVIDERS: ADMIT Internal Medicine Nephrology; ATTEND Internal Medicine Nephrology
DX: E10.10 Type 1 diabetes mellitus with ketoacidosis without coma (principal); E87.1 Hypo-osmolality and hyponatremia; E87.3 Alkalosis; E86.0 Dehydration; E87.5 Hyperkalemia; Z79.4 Long term (current) use of insulin; F17.210 Nicotine dependence, cigarettes, uncomplicated